=== PATIENT | male | born 1990 | race Caucasian/White ===

== ENCOUNTER 2017-08-16 20:11 | Emergency (ER) | payer OTHER, SELFPAY ==
[~2017-08-16 20:11] MED LIST: Iopamidol 370 76% 100 ML VIAL ONE
[2017-08-16] MEDS ORDERED: Ketorolac Tromethamine 30 MG/ML VIAL ONE (20:41)
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
== END 2017-08-16 21:38 | disposition home or self-care (01) ==
LOC: SCSER 20:11
DX: G89.29 Other chronic pain (principal); M54.6 Pain in thoracic spine; F17.210 Nicotine dependence, cigarettes, uncomplicated; V43.52XA Car driver injured in collision with other type car in traffic accident, initial encounter
CPT/HCPCS: 71260; 96374; J1885

== ENCOUNTER 2018-05-01 14:58 | Emergency (ER) | payer SELFPAY ==
[2018-05-01 15:39] LABS: #Basophils 0.1 thou/uL (0.0-0.2); #Eosinphils 0.1 thou/uL (0.0-0.7); #Monocytes 0.7 thou/uL (0.11-0.59); #Neutrophils 7.5 thou/uL (1.40-6.50); %Basophils 0.6 % (0.0-1.0); %Eosinophils 0.7 % (0.0-10.0); %Lymphocytes 19.3 % (21.0-51.0); %Monocytes 6.3 % (0.0-10.0); %Neutrophils 73.1 % (42.0-75.0); Mean Corpuscular HGB CONC 33.7 g/dL (32.0-36.0); Mean Platelet Volume 7.7 fL (7.4-10.4); Platelet Count 206 thou/uL (130-400); RBC Distribution Width 11.9 % (11.5-14.5); Red Blood Cell (RBC) Count 5.17 mill/uL (4.70-6.10); White Blood Cell (WBC) Count 10.3 thou/uL (4.8-10.8)
[2018-05-01 15:53] LABS: ALT (SGPT) 17 U/L (8-55); AST (SGOT) 20 U/L (5-34); Albumin 4.6 g/dL (3.5-5.0); Alkaline Phosphatase 61 U/L (40-150); Anion Gap 14 mmol/L (10-20); BUN (Urea Nitrogen) 12 mg/dL (8.9-20.6); Bilirubin, Total 0.7 mg/dL (0.2-1.2); Calc. Creatinine Clearance 0 mL/min (70-130); Calcium 9.6 mg/dL (7.8-10.44); Carbon Dioxide 28 mmol/L (22-29); Chloride 106 mmol/L (98-107); Estimated GFR-MDRD Greater than 90; Globulin 2.5 g/dL (2.4-3.5); Glucose 93 mg/dL (70-105); Potassium 4.5 mmol/L (3.5-5.1); Protein, Total 7.1 g/dL (6.0-8.3); Sodium 143 mmol/L (136-145)
[2018-05-01 16:13] LABS: Bilirubin Negative (Negative); Blood, Urine Negative (Negative); Clarity CLEAR (Clear); Glucose, Urine (Dipstick) Negative (Negative); Leukocyte Negative (Negative); Nitrite Negative (Negative); Protein, Urine (Dipstick) Negative (Neg-Trace); Specific Gravity, Urine 1.035 (1.002-1.036); pH, Urine 6.5 (5.0-9.0)
--- NOTE | 2018-05-01 16:30 | RAD ---
CHEST ONE VIEW ABDOMEN TWO VIEWS: 05/01/18 HISTORY: Abdominal pain. FINDINGS/IMPRESSION: The heart size is normal. The lungs are clear. No free air or differential fluid levels are seen. Fec al material in the colon. The bowel gas pattern is unremarkable. POS: [facility]
== END 2018-05-01 17:40 | disposition home or self-care (01) ==
LOC: ERS 14:58
DX: R10.13 Epigastric pain (principal); F17.210 Nicotine dependence, cigarettes, uncomplicated
CPT/HCPCS: 36415; 74022; 80053; 81003; 83690; 85025